=== PATIENT | male | born 1975 | race Caucasian/White ===

== ENCOUNTER 2017-05-21 06:02 | Day surgery (SDC) | payer OTHER ==
[2017-05-13 13:22] VITALS: BMI 26.5
[2017-05-21] MEDS ORDERED: SUCCINYLCHOLINE CHLORIDE 200 MG/10 ML VIAL ONE (07:06)
[2017-05-21] MEDS ORDERED: PROPOFOL 20 ML ONE ×2 (07:06→09:14)
[2017-05-21] MEDS ORDERED: LIDOCAINE HCL 2% 100 MG/5 ML DISP.SYRIN ONE (07:19)
[2017-05-21] MEDS ORDERED: ONDANSETRON 4 MG/2 ML VIAL ONE ×2 (07:19→09:42)
[2017-05-21] MEDS ORDERED: DEXAMETHASONE SOD PHOSPHATE/PF 10 MG/ML SDV ONE (07:19)
[2017-05-21] MEDS ORDERED: DEXAMETHASONE SOD PHOSPHATE 4 MG/1 ML VIAL ONE (07:19)
[2017-05-21] MEDS ORDERED: ROPIVACAINE HCL 0.5% 30ML VIAL ONE (07:20)
[2017-05-21] MEDS ORDERED: MIDAZOLAM HCL 2 MG/2 ML SINGLE DOSE VIAL ONE (07:20)
[2017-05-21] MEDS ORDERED: VANCOMYCIN 1,000 MG VIAL (RESTRICTED TO ID ONLY) ONE (07:22)
[2017-05-21] MEDS ORDERED: TRANEXAMIC ACID 1000 MG/10 ML VIAL ONE (08:08)
[2017-05-21] MEDS ORDERED: ceFAZolin SODIUM 1 GM VIAL ONE (08:08)
--- NOTE | 2017-05-21 09:24 | DS ---
Physical Examination Vital Signs: Vital Signs Temperature 98 F 05/21/17 06:37 Pulse Rate 62 05/21/17 06:37 Respiratory Rate 18 05/21/17 06:37 Blood Pressure 118/70 05/21/17 06:37 O2 Sat by Pulse Oximetry (%) 98 05/21/17 06:37 Discharge Summary Reason For Visit: MEDIAL MENISCAL TEAR, ACL TEAR, RIGHT KNEE Condition: Good - Instructions Diet, Activity, Other Instructions: Post Operative Instructions: ACL Reconstruction Dr. Chas Crawford 1. Pain following an ACL reconstruction is variable and can be significant. Some patients will have more pain than others. You have been provided with a prescription for medication that contains a narcotic. You are not allowed to drive while on this medication. Feel free to take medications such as Ibuprofen or Naprosyn in addition to the pain medicine if you do not have any problems with the NSAID class of medications. 2. You should not remove the bandages for 48 hours unless directed otherwise. You may shower at that point. You are not allowed to bathe or go swimming until the sutures are removed. Put band-aids on the sutures after your shower and do not put any creams or lotions over the incisions. 3. You are allowed to put most of your weight on the leg and bend your knee, however, you should use crutches for assistance unless directed otherwise. 4. Getting the knee straight is your most important goal during the first 72 hours following an ACL reconstruction. Try not to lie down with a pillow under your knee. Instead the pillow should be under your ankle, thus allowing you to push your knee straight down into the bed. This is a very important milestone to achieve before your first post-surgery visit with me. 5. Swelling around the knee is normal following an ACL reconstruction. 6. The area around the knee and along the front of your valencia will also become swollen and black and blue. 7. Apply ice to the knee for 15 min every hour or so. You may continue this for as many days as you like. 8. Please call the office to schedule a visit to have your sutures removed. 9. If for any reason you believe you may have an infection or are concerned, please feel free to call me. I can be reached through our office number 24 hours a day. 10. Please call our office with any questions; we will review the surgical findings during your post operative visit. Disposition: HOME - Home Medications Comprehensive Discharge Medication List: Ambulatory Orders NK [No Known Home Medication] 05/13/17
--- NOTE | 2017-05-21 09:24 | OP ---
Operative Note - Note: Operative Date: 05/21/17 Pre-Operative Diagnosis: right knee ACL tear, MMT, OCD lesion MFC Operation: Right knee ACLR, microfracture MFC, partial menisectomy Post-Operative Diagnosis: Same as Pre-op Surgeon: Chas Crawford Anesthesiologist/WATER TENDER: Bakari Mccartney Anesthesia: General Operative Report Dictated: Yes
[2017-05-21] MEDS ORDERED: ONDANSETRON 4 MG/2 ML VIAL IVPUSH ONE (09:45)
[2017-05-21 10:58] VITALS: TEMP 98.3
[2017-05-21] MEDS ORDERED: oxyCODONE HCL 5 MG TABLET ONE ×2 (11:31→12:29)
[2017-05-21] MEDS ORDERED: oxyCODONE HCL 5 MG TABLET PO PRN ×2 (11:38)
[2017-05-21] MEDS ORDERED: LACTATED RINGERS SOLUTION 1,000 ML IV SCH (11:45)
--- NOTE | 2017-05-21 12:10 | SURG ---
Surgery Paralegal Specialist Note Paralegal Specialist: Nazario Jason PA-C Date of Service: 05/21/17 Diagnosis: right knee ACL tear, MMT, OCD lesion MFC Procedure: Right knee ACL reconstruction, microfracture MFC, partial menisectomy. allograft I was present for the entirety of the operative procedure. For further detail, please refer to operative report. Visit type - Case Type Case Type: Scheduled Admission - New patient This patient is new to me today: Yes Date on this admission: 05/21/17
[2017-05-21 13:10] VITALS: BP 147/82; PULSE 74
--- NOTE | 2017-05-26 15:21 | PATH ---
Surgical Pathology Report Patient Name: ELVIS GONZALEZ Med. Rec. #: [id number] /Age/Gender: 1975 (Age: 41) / M Account: [id number] Location: [facility] Taken: 05/21/2017 Received: 05/21/2017 Reported: 05/26/2017 Physicians: Chas Crawford M.D. Specimen(s) Received A: SHAVINGS RIGHT KNEE B: HARDWARE RIGHT KNEE Clinical History ACL tear right knee Final Diagnosis A. KNEE, RIGHT, ARTHROSCOPIC SHAVINGS: FIBROSYNOVIALTISSUE, CARTILAGE AND BONE. B. HARDWARE, RIGHT KNEE, REMOVAL: HARDWARE, DESCRIBED IN (GROSS EXAMINATION ONLY). Electronically Signed Brandi Craig M.D. Gross Description A. Received in formalin, labeled "shavings right knee," is a 3.0 x 2.5 x 0.3 cm. aggregate of warner-yellow soft tissue fragments. A sales representative health insurance portion is submitted in one cassette. B. Received fresh labeled "hardware right knee," is a 2.5 cm in length soriano metallic screw. No soft tissue is present. No sections are submitted, gross only. /05/24/2017 saudi05/24/2017
== END 2017-05-21 13:05 | disposition home or self-care (01) ==
LOC: FASU 06:02
PROVIDERS: ATTEND Orthopaedic Surgery
PROC: 0SBC4ZZ Excision of Right Knee Joint, Percutaneous Endoscopic Approach (ICD-10-PCS; 2017-05-21)
PROC: 0SQC4ZZ Repair Right Knee Joint, Percutaneous Endoscopic Approach (ICD-10-PCS; 2017-05-21)
PROC: 0SPC04Z Removal of Internal Fixation Device from Right Knee Joint, Open Approach (ICD-10-PCS; 2017-05-21)
PROC: 0MSN4ZZ Reposition Right Knee Bursa and Ligament, Percutaneous Endoscopic Approach (ICD-10-PCS; principal; 2017-05-21 08:18)
DX: S83.511A Sprain of anterior cruciate ligament of right knee, initial encounter (principal); S83.241A Other tear of medial meniscus, current injury, right knee, initial encounter; M21.861 Other specified acquired deformities of right lower leg; X58.XXXA Exposure to other specified factors, initial encounter; Y93.89 Activity, other specified; Y92.89 Other specified places as the place of occurrence of the external cause
CPT/HCPCS: 73560-TC-RT-FY; 88300-TC; 88304-TC